=== PATIENT | female | born 1985 | race Asian ===

== ENCOUNTER 2022-07-14 18:34 | Emergency (ER) | payer OTHER ==
[~2022-07-14] VITALS: Ht 162.6 cm; Wt 77.1 kg
[2022-07-14 18:34] VITALS: BP_SYST 125
--- NOTE | 2022-07-14 18:34 | NUR ---
Patient triaged and placed in waiting room. VSS and patient appears in no acute distress at this time. Accompanied by SPOUSE, awaiting available bed, and MD notified of need for MSE.
--- NOTE | 2022-07-14 20:06 | NUR ---
Patient ambulatory to bed hallway 1 for evaluation
--- NOTE | 2022-07-14 20:06 | NUR ---
Storm grovenini in [place] - 07/14/22 at 2037 by SDEDAJF Patient
[2022-07-14] MEDS ORDERED: ASPIRIN 81 MG TAB.CHEW PO ONE (20:30)
--- NOTE | 2022-07-14 20:30 | NUR ---
ER examining patient.
--- NOTE | 2022-07-14 20:38 | NUR ---
Placed in room 07 . Placed on site monitor, blood pressure machine and pulse oximeter. To gown for exam. Side rails up.
--- NOTE | 2022-07-14 20:39 | NUR ---
Pt brought by , A&Ox4, pt presents to ER with SOB and chest tightness for one week, pt O2 97%, state she has Hx of HTN, skin pink and warm, cap refill <3, VSS, respirations even and unlabored, will cont to monitor.
[2022-07-14 21:21] LABS: BASOPHILS # (AUTO) 0.1 K/uL (0.0-0.2); BASOPHILS % (AUTO) 0.7 % (0.0-2.0); EOSINOPHILS # (AUTO) 0.1 K/uL (0.0-0.4); EOSINOPHILS % (AUTO) 0.8 % (0.0-4.0); HEMATOCRIT 38.3 % (36-48); HEMOGLOBIN 12.9 g/dL (12.0-16.0); LYMPHOCYTES % (AUTO) 22.4 % (20.5-51.5); MEAN CORPUSCULAR HEMOGLOBIN 29 pg (27-31); MEAN CORPUSCULAR HGB CONC 34 % (32-36); MEAN CORPUSCULAR VOLUME 85 fL (79.0-98.0); MONOCYTES # (AUTO) 0.8 K/uL (0.0-1.0); NEUTROPHILS # (AUTO) 9.4 K/uL (1.8-7.7); NEUTROPHILS % (AUTO) 70.1 % (40.0-70.0); PLATELET COUNT (AUTO) 281 K/uL (130-430); RED BLOOD CELL COUNT(AUTO) 4.51 MIL/uL (4.2-6.2); RED CELL DISTRIBUTION WIDTH 13.3 % (9.0-15.0); WHITE BLOOD COUNT (AUTO) 13.4 K/uL (4.8-10.8)
[2022-07-14 21:31] LABS: ANION GAP 7 (5-15); CHLORIDE 104 mmol/L (98-107); CREATININE 0.99 mg/dL (0.55-1.30); GLUCOSE 104 mg/dL (70-99); POTASSIUM 3.7 mmol/L (3.5-5.1); UREA NITROGEN, BLOOD 11 mg/dL (8-21)
[2022-07-14 21:40] LABS: ALANINE AMINOTRANSFERASE 16 U/L (12-78); ALBUMIN 3.6 g/dL (3.4-4.8); ASPARTATE AMINOTRANSFERASE 9 U/L (10-37); TOTAL BILIRUBIN 0.5 mg/dL (0.0-1.0)
[2022-07-14 21:44] LABS: GFR AFRICAN AMERICAN 81 mL/min (>90)
[2022-07-14] MEDS ORDERED: NAPR-1172 PO (23:08)
[2022-07-15 00:32] VITALS: BP_SYST 129
--- NOTE | 2022-07-15 00:33 | NUR ---
Patient given written and verbal discharge instructions and verbalizes understanding. ER MD Mayers discussed with patient the results and treatment provided. Patient in stable condition. ID arm band removed. IV catheter removed intact and dressing applied, no active bleeding. Rx of Naproxen sent to pharmacy of choice. Patient educated on pain management and to follow up with PMD. Pain Scale 0/10. Opportunity for questions provided and answered. Medication side effect fact sheet provided.
== END 2022-07-15 00:31 | disposition home or self-care (01) ==
LOC: SED 18:34
DX: R07.9 Chest pain, unspecified (principal); R06.02 Shortness of breath; Z88.0 Allergy status to penicillin; Z79.899 Other long term (current) drug therapy
CPT/HCPCS: 36415; 71045; 80053; 81025; 84484; 85025; 85379; 93005; 99285

== ENCOUNTER 2022-07-18 15:51 | Emergency (ER) | payer OTHER ==
[~2022-07-18] VITALS: Ht 170.2 cm; Wt 77.1 kg
[2022-07-18 15:51] VITALS: BP_SYST 143
[~2022-07-18 15:51] MED LIST: NAPR-1172 PO
--- NOTE | 2022-07-18 15:51 | NUR ---
BROUGHT BACK TO BED #7 AND TRIAGED. REPORT GIVEN TO JYOTHI
[2022-07-18] MEDS ORDERED: LISINOPRIL 10 MG TABLET (PRINIVIL) PO ONE (16:15)
[2022-07-18] MEDS ORDERED: LISI1TAB57 PO (17:47)
--- NOTE | 2022-07-18 17:58 | NUR ---
BIB FAMILY WITH C/C OF SOB. PT JUST SEEN LAST FRIDAY IN ED FOR SOB. PT REPORTS AT HOME WITH SUDDEN ONSET OF SOB. ENROUTE TO ED AND WHILE IN ED PT SOB RESOLVED. DENIES ANY CP. NAD NOTED. WITH PT AT . REPORTS UNDER SOME STRESS LATELY, DENIES HX OF ANXIETY OR DEPRESSION. WHILE DISCUSSING COPING MECHANISMS WITH PT AND FAMILY, PT BECAME TEARFUL. SBP 160'S. LISINOPRIL GIVEN FOR BP. INFORMED TO F/U WITH PMD FOR CHANGE MANAGEMENT REFERRAL AND INQUIRE WITH PMD IF OK FOR ANXIOLYTIC MEDS. PT AND VERBALIZED UNDERSTANDING. CLEARED FOR DC BY DR. COLEY. NAD NOTED. BP NOW 144/82. PT AMBULATED OUT OF ED WITH IN STABLE CONDITION.
[2022-07-18 18:02] VITALS: BP_SYST 144
[2022-07-18 18:09] LABS: BASOPHILS # (AUTO) 0.1 K/uL (0.0-0.2); BASOPHILS % (AUTO) 0.5 % (0.0-2.0); EOSINOPHILS # (AUTO) 0.1 K/uL (0.0-0.4); EOSINOPHILS % (AUTO) 0.9 % (0.0-4.0); HEMATOCRIT 38.1 % (36-48); LYMPHOCYTES # (AUTO) 2.7 K/uL (1.0-5.5); MEAN CORPUSCULAR HEMOGLOBIN 29 pg (27-31); MEAN CORPUSCULAR HGB CONC 34 % (32-36); MEAN CORPUSCULAR VOLUME 84 fL (79.0-98.0); MONOCYTES # (AUTO) 0.7 K/uL (0.0-1.0); MONOCYTES % (AUTO) 5.4 % (1.7-9.3); NEUTROPHILS # (AUTO) 9.3 K/uL (1.8-7.7); NEUTROPHILS % (AUTO) 72.2 % (40.0-70.0); PLATELET COUNT (AUTO) 267 K/uL (130-430); RED BLOOD CELL COUNT(AUTO) 4.52 MIL/uL (4.2-6.2); RED CELL DISTRIBUTION WIDTH 13.3 % (9.0-15.0); WHITE BLOOD COUNT (AUTO) 12.9 K/uL (4.8-10.8)
[2022-07-18 22:56] LABS: ANION GAP 10 (5-15); CHLORIDE 105 mmol/L (98-107); GLUCOSE 94 mg/dL (70-99); POTASSIUM 4.2 mmol/L (3.5-5.1)
[2022-07-18 22:57] LABS: GFR AFRICAN AMERICAN 104 mL/min (>90); TOTAL BILIRUBIN 0.3 mg/dL (0.0-1.0); UREA NITROGEN, BLOOD 16 mg/dL (8-21)
[2022-07-18 22:58] LABS: ALANINE AMINOTRANSFERASE 26 U/L (12-78); ALBUMIN 3.7 g/dL (3.4-4.8); ASPARTATE AMINOTRANSFERASE 22 U/L (10-37)
== END 2022-07-18 18:02 | disposition home or self-care (01) ==
LOC: SED 15:51
DX: I10 Essential (primary) hypertension (principal); R06.02 Shortness of breath; R07.9 Chest pain, unspecified; Z88.0 Allergy status to penicillin; Z79.899 Other long term (current) drug therapy
CPT/HCPCS: 36415; 80053; 84484; 85025; 93005; 99284